=== PATIENT | female | born 1945 | race Two or more races ===

== ENCOUNTER 2022-11-10 15:32 | Emergency (ER) | payer MEDICAID ==
[~2022-11-10] VITALS: Ht 162.6 cm; Wt 86.4 kg
[2022-11-10 15:36] VITALS: BP 154/104; PULSE 94; RESP 18; TEMP 98.2
[2022-11-10] MEDS ORDERED: LOSA-381 PO (15:38)
[2022-11-10] MEDS ORDERED: HYDROCODONE/ACETAMINOPHEN 5-325 MG TABLET PO ONE (16:45)
[2022-11-10] MEDS ORDERED: KETOROLAC TROMETHAMINE 30 MG/ML VIAL IM ONE (17:30)
[2022-11-10] MEDS ORDERED: IBUP-1492 PO (18:19)
== END 2022-11-10 18:57 | disposition home or self-care (01) ==
LOC: EMS 15:34
DX: M25.562 Pain in left knee (principal); I10 Essential (primary) hypertension
CPT/HCPCS: 99283; 73562; 96372; J1885

== ENCOUNTER 2024-05-01 13:17 | Emergency (ER) | payer OTHER ==
[~2024-05-01] VITALS: Ht 154.9 cm; Wt 86.4 kg
[~2024-05-01 13:17] MED LIST: DICL100G60 TP; IBUP-1492 PO; LOSA-381 PO
[2024-05-01 13:29] VITALS: TEMP 97.8
[2024-05-01] MEDS ORDERED: GABA-1216 PO (13:31)
[2024-05-01] MEDS ORDERED: ENAL2.5T71 PO (13:31)
[2024-05-01] MEDS ORDERED: ATOR40TA71 PO (17:31)
[2024-05-01] MEDS ORDERED: AMLO5TAB66 PO (17:31)
[2024-05-01] MEDS ORDERED: MIRA50TA PO (17:31)
[2024-05-01] MEDS ORDERED: CHOL25TA4 PO (17:31)
[2024-05-01] MEDS: ACETAMINOPHEN 500 MG TABLET PO ONE (17:50)
[2024-05-01] MEDS ORDERED: IBUP-1492 PO (20:36)
[2024-05-01] MEDS ORDERED: ACET-3385 PO (20:36)
[2024-05-01 21:14] VITALS: BP 135/68; PULSE 84; RESP 18; O2SAT 98
== END 2024-05-01 21:18 | disposition home or self-care (01) ==
LOC: EMS 13:27
DX: S83.92XA Sprain of unspecified site of left knee, initial encounter (principal); S60.211A Contusion of right wrist, initial encounter; S09.90XA Unspecified injury of head, initial encounter; R07.81 Pleurodynia; I10 Essential (primary) hypertension; Z79.899 Other long term (current) drug therapy; W01.0XXA Fall on same level from slipping, tripping and stumbling without subsequent striking against object, initial encounter; Y93.89 Activity, other specified; Y92.89 Other specified places as the place of occurrence of the external cause; Y99.8 Other external cause status
CPT/HCPCS: 70450; 71111; 72125; 99284

== ENCOUNTER 2024-12-20 10:25 | Inpatient (IN) | payer OTHER ==
[~2024-12-20] VITALS: Ht 160 cm; Wt 86.0 kg
[~2024-12-20 10:25] MED LIST changes: +ACET-3385 PO; +AMLO5TAB66 PO; +ATOR40TA71 PO; +CHOL25TA4 PO; -DICL100G60 TP; +GABA-1216 PO; -LOSA-381 PO; +MIRA50TA PO
[2024-12-20 10:59] LABS: PLATELET COUNT (AUTO) 239 K/uL (150-450); RED BLOOD CELL COUNT(AUTO) 4.83 MIL/uL (4.00-5.20); RED CELL DISTRIBUTION WIDTH 15.1 % (11.5-14.5); WHITE BLOOD COUNT (AUTO) 6.8 K/uL (4.5-11.0)
[2024-12-20 11:09] LABS: CALCIUM, TOTAL 8.5 mg/dL (8.8-10.5); CREATININE 1.01 mg/dL (0.60-1.30); GLOMERULAR FILTR. RATE CALC 53 mL/min (>60); GLUCOSE,RANDOM 113 mg/dL (70-110); SODIUM SERUM 142 mmol/L (136-145); UREA NITROGEN, BLOOD 11 mg/dL (7-18)
[2024-12-20 11:19] LABS: ASPARTATE AMINOTRANSFERASE 24.0 U/L (15-37); TOTAL PROTEIN, SERUM 6.8 g/dL (6.4-8.2); TROPONIN I-HIGH SENSITIVITY 4 ng/L (<51)
[2024-12-20 11:52] LABS: APPEARANCE,URINE CLEAR (CLEAR); GLUCOSE, URINE (UA) NEGATIVE (NEGATIVE); LEUKOCYTE ESTERASE ,URINE SMALL (NEGATIVE); NITRATE,URINE NEGATIVE (NEGATIVE); OCCULT BLOOD,URINE NEGATIVE (NEGATIVE); SPECIFIC GRAVITIY, URINE 1.010 (1.003-1.030)
[2024-12-20] MEDS: PB/HYOSCY/ATR/SCOP/LIDO/MAALOX 55 ML BOTTLE PO ONE (13:02)
[2024-12-20] MEDS ORDERED: IOHEXOL 350 MG/ML 100 ML VIAL ONE (13:08)
[2024-12-20] MEDS: ONDANSETRON HCL 4 MG/2 ML VIAL IVP ONE (15:49)
[2024-12-20] MEDS: MORPHINE SULFATE 4 MG/ML SYRINGE IVP ONE (15:49)
[2024-12-20] MEDS: SODIUM CHLORIDE 0.9% 1,000 ML IV ONE (15:49)
[2024-12-20 18:51] VITALS: BP 118/58; PULSE 62; RESP 18; TEMP 97.5; O2SAT 96
[2024-12-20] MEDS ORDERED: ONDANSETRON HCL 4 MG/2 ML VIAL IVP PRN (19:00)
[2024-12-20] MEDS: DEXTROSE 5%-LACTATED RINGERS 1,000 ML IV SCH (19:39)
[2024-12-20 19:45] LABS: TROPONIN I-HIGH SENSITIVITY 6 ng/L (<51)
[2024-12-20 20:02] VITALS: BP 120/71; PULSE 74; RESP 18; TEMP 98.1; O2SAT 96
[2024-12-20] MEDS: DOCUSATE SODIUM 100 MG CAPSULE PO SCH (20:51)
[2024-12-20] MEDS: MORPHINE SULFATE 4 MG/ML SYRINGE IVP PRN (20:52)
[2024-12-20] MEDS: HEPARIN SODIUM,PORCINE 5,000 UNITS/ML VIAL SQ SCH (23:18)
[2024-12-21 05:06] VITALS: BP 122/69; PULSE 81; RESP 16; TEMP 98.1; O2SAT 96
[2024-12-21 07:29] LABS: PLATELET COUNT (AUTO) 218 K/uL (150-450); RED BLOOD CELL COUNT(AUTO) 4.46 MIL/uL (4.00-5.20); RED CELL DISTRIBUTION WIDTH 15.4 % (11.5-14.5); WHITE BLOOD COUNT (AUTO) 6.1 K/uL (4.5-11.0)
[2024-12-21 07:48] LABS: CALCIUM, TOTAL 8.6 mg/dL (8.8-10.5); CREATININE 0.90 mg/dL (0.60-1.30); GLOMERULAR FILTR. RATE CALC > 60 mL/min (>60); GLUCOSE,RANDOM 107 mg/dL (70-110); SODIUM SERUM 141 mmol/L (136-145); UREA NITROGEN, BLOOD 10 mg/dL (7-18)
[2024-12-21 08:14] VITALS: BP 124/69; PULSE 75; RESP 20; TEMP 97.9; O2SAT 97
[2024-12-21 16:02] VITALS: BP 122/62; PULSE 69; RESP 18; TEMP 97.7; O2SAT 94
[2024-12-21] MEDS: PANTOPRAZOLE SODIUM 40 MG/VIAL IVP SCH (16:15)
[2024-12-21] MEDS: PB/HYOSCY/ATR/SCOP/LIDO/MAALOX 55 ML BOTTLE PO ONE (16:16)
[2024-12-21] MEDS ORDERED: MEBROFENIN TC99M/MCL ISOTOPE 1 EA INJ INJ ONE (20:20)
[2024-12-21 21:33] VITALS: BP 148/69; PULSE 71; RESP 20; TEMP 98.1; O2SAT 95
[2024-12-22 04:14] VITALS: BP 126/65; PULSE 73; RESP 18; TEMP 97.5; O2SAT 97
[2024-12-22 08:25] VITALS: BP 140/68; PULSE 72; RESP 18; TEMP 98.1; O2SAT 97
[2024-12-22] MEDS ORDERED: SODIUM CHLORIDE 0.9% 1,000 ML ONE (08:45)
[2024-12-22] MEDS ORDERED: EPINEPHrine 1:10,000 [1 MG/10 ML] SYRINGE ONE (08:46)
[2024-12-22] MEDS ORDERED: SODIUM TETRADECYL SULFATE 3% 60 MG/2 ML VIAL IVP ONE (08:46)
[2024-12-22] MEDS ORDERED: ATROPINE SULFATE 0.1 MG/ML 10 ML SYRINGE IVP ONE (08:46)
[2024-12-22] MEDS ORDERED: FLUMAZENIL 0.1 MG/ML 5 ML VIAL IVP ONE (08:46)
[2024-12-22] MEDS ORDERED: NALOXONE HCL 0.4 MG/ML VIAL ONE (08:46)
[2024-12-22] MEDS: SODIUM CHLORIDE 0.9% 1,000 ML IV ONE (09:32)
[2024-12-22] MEDS ORDERED: ONDANSETRON HCL 4 MG/2 ML VIAL IVP PRN (09:45)
[2024-12-22] MEDS ORDERED: LIDOCAINE/PF 2% 5 ML SYRINGE IVP ONE (12:00)
[2024-12-22] MEDS ORDERED: PROPOFOL 1% 20 ML VIAL IVP ONE (12:00)
[2024-12-22] MEDS: SUCRALFATE 1 GM/10 ML SUSPENSION UDCUP PO SCH (13:52)
[2024-12-22 15:45] VITALS: PULSE 69; RESP 16; O2SAT 97
[2024-12-22 15:58] VITALS: BP 128/68; PULSE 67; RESP 18; TEMP 97.9; O2SAT 96
[2024-12-22 21:28] VITALS: BP 140/66; PULSE 75; RESP 18; TEMP 98.1; O2SAT 94
[2024-12-23] MEDS ORDERED: PANT-31 PO (05:25)
[2024-12-23 05:35] VITALS: BP 132/63; PULSE 72; RESP 18; TEMP 98.1; O2SAT 94
[2024-12-23 08:07] VITALS: BP 123/58; PULSE 71; RESP 18; TEMP 97.5; O2SAT 96
[2024-12-23] MEDS: PANTOPRAZOLE SODIUM 40 MG/VIAL IVP SCH (08:40)
== END 2024-12-23 13:35 | disposition home or self-care (01) | DRG 241 ==
LOC: EMS 10:28 → EDH 16:37 → 4E 18:21
PROVIDERS: ADMIT Internal Medicine; ATTEND Internal Medicine
PROC: 0DB98ZX Excision of Duodenum, Via Natural or Artificial Opening Endoscopic, Diagnostic (ICD-10-PCS; principal; 2024-12-22 09:45)
DX: K25.0 Acute gastric ulcer with hemorrhage (principal); E78.5 Hyperlipidemia, unspecified; I10 Essential (primary) hypertension; K59.00 Constipation, unspecified; N28.1 Cyst of kidney, acquired; R10.0 Acute abdomen; K21.9 Gastro-esophageal reflux disease without esophagitis; G89.29 Other chronic pain
CPT/HCPCS: 71045; 74176; 76705; 78226; 80048; 80076; 81001; 83690; 83735; 84484; 85014; 85018; 85025; 88305; 88342; 93005; 96361; 96374; 96375; 99285; A9537; G0238; G0378; J0169; J0461; J1200; J1644; J2270; J2312; J2405; J2470; J2704; J3490; J7030; 36415-L1; 36415-TC